=== PATIENT | male | born 1985 | race Caucasian/White ===

== ENCOUNTER → 2016-06-13 | Outpatient (CLI) | payer OTHER ==
[~2016-06-13] VITALS: Ht 157.5 cm; Wt 45.3 kg
[~2016-06-13] MED LIST: AMOX1TAB16 PO; BACTDSB PO; OXYB5 PO; SENN-136 PO
[2016-06-13 14:06] VITALS: BP 115/65
== END | disposition home or self-care (01) ==
LOC: HBOWC 13:15
PROVIDERS: ATTEND Emergency Medicine
DX: L89.622 Pressure ulcer of left heel, stage 2 (principal); L89.612 Pressure ulcer of right heel, stage 2; G82.20 Paraplegia, unspecified; Q05.9 Spina bifida, unspecified
CPT/HCPCS: 97597; G0463

== ENCOUNTER → 2016-06-27 | Outpatient (CLI) | payer OTHER ==
[2016-06-27 10:46] VITALS: BP 118/83
== END | disposition home or self-care (01) ==
LOC: HBOWC 09:34
PROVIDERS: ATTEND Emergency Medicine
DX: L89.622 Pressure ulcer of left heel, stage 2 (principal); L89.612 Pressure ulcer of right heel, stage 2; G82.20 Paraplegia, unspecified; Q05.9 Spina bifida, unspecified
CPT/HCPCS: 97597

== ENCOUNTER → 2016-07-11 | Outpatient (CLI) | payer OTHER ==
[2016-07-11 10:43] VITALS: BP 101/70
== END | disposition home or self-care (01) ==
LOC: HBOWC 09:52
PROVIDERS: ATTEND Emergency Medicine
DX: L89.622 Pressure ulcer of left heel, stage 2 (principal); L89.612 Pressure ulcer of right heel, stage 2; Q05.9 Spina bifida, unspecified; G82.20 Paraplegia, unspecified
CPT/HCPCS: 97597

== ENCOUNTER → 2016-07-25 | Outpatient (CLI) | payer OTHER ==
[2016-07-25 10:18] VITALS: BP 113/79
== END | disposition home or self-care (01) ==
LOC: HBOWC 10:00
PROVIDERS: ATTEND Emergency Medicine Undersea and Hyperbaric Medicine
DX: L89.622 Pressure ulcer of left heel, stage 2 (principal); L89.612 Pressure ulcer of right heel, stage 2; G82.20 Paraplegia, unspecified; Q05.9 Spina bifida, unspecified